=== PATIENT | male | born 1985 | race Caucasian/White ===

== ENCOUNTER 2019-10-23 04:44 | Emergency (ER) | payer SELFPAY ==
[2019-10-23 04:45] VITALS: BP 138/92; PULSE 78; RESP 18; TEMP 36.5; O2SAT 97
--- NOTE | 2019-10-23 04:52 | ED.ABDPAIN ---
HPI - Abdominal Pain General Chief Complaint: Abdominal Pain Stated Complaint: abdoman pain Time Seen by Provider: 10/23/19 04:52 Source: patient Mode of arrival: ambulatory Limitations: no limitations History of Present Illness HPI narrative: 33-year-old man comes in today complaining of upper abdominal pain which started in the last day or 2. Patient states that he has had these symptoms intermittently for months and it usually resolved by drinking some milk. He states that today the pain is worse, and worse when he palpates his abdomen and when he takes a deep breath. He has had no fever, vomiting, diarrhea, loss of appetite, cough or cold symptoms, chest pain, hematuria, dysuria, or rash. He has taken nothing for his symptoms. MD elicited complaint: abdominal pain Onset (ago): day(s) Pain Consistency: constant Location: epigastric, periumbilical and R flank Severity: severe Quality: sharp Radiation: none Migration to: no migration Exacerbating factors: movement Relieving factors: nothing Related Data Allergies Allergy/AdvReac Type Severity Reaction Status Date / Time No Known Allergies Allergy Unverified 06/05/18 00:38 Review of Systems Constitutional: Constitutional: Denies chills, Denies fever(s) and Denies weakness Eyes: Eyes: Denies change in vision and Denies photophobia ENT: Denies dysphagia, Denies nasal congestion and Denies sore throat Cardiovascular: Cardiovascular: Denies chest pain and Denies radiating jaw, neck or arm pain Respiratory: Respiratory: Denies cough and Denies dyspnea Gastrointestinal: Gastrointestinal: Reports as per HPI Genitourinary: Genitourinary: Denies hematuria and Denies dysuria Musculoskeletal: Musculoskeletal: Denies back pain, Denies arthralgias and Denies joint swelling Integumentary/Breasts: Skin/Breast: Denies pruritus, Denies erythema and Denies rash Neurologic: Denies vertigo, Denies dizziness and Denies syncope Psychiatric: Psychiatric: Denies anxiety and Denies depression Endocrine: Endocrine: Denies polydipsia and Denies polyuria Hematologic/Lymphatic: Hematologic/Lymphatic: Denies easy bleeding and Denies easy bruising Allergic/Immunologic: Allergic/Immunologic: Denies lip swelling and Denies wheezing PMFSH Social History Social History Smoking status: Smoker, status unknown Alcohol intake: current Substance use: current Substance use type: marijuana Living arrangements: with family Exam Const: General: healthy appearing and alert Nutritional Appearance: well nourished Orientation/consciousness: patient oriented x3 Other: Mild to moderate acute distress. HENMT: Ears: external ears normal, TM's normal bilaterally and EAC's normal Mouth: Yes Normal oral and palatal mucosa present and Yes moist mucous membranes Throat: posterior oropharynx normal Eyes: Conjunctivae: conjunctivae normal Pupils: Equal, round and reactive pupils present EOM: EOMs intact bilaterally Resp: Effort & Inspection: normal respiratory effort and not labored Auscultation: clear to auscultation bilaterally, no rales, no rhonchi and no wheezes Cardio: Rate: regular rate Rhythm: regular rhythm Heart sounds: no murmurs GI: Inspection: distended GI Palp: Yes Soft to palpation, Yes Tenderness to palpation present (GI) (mildly at right epigastrum), No Guarding due to palpation present (GI), No Rigid due to palpation and No Palpable mass present Auscultation: normal bowel sounds Skin: General skin exam: normal color, no jaundice and no pallor Rashes: no rashes Neuro: General: patient oriented x3, moves all extremities, no focal motor deficits and CN's II-XI intact bilaterally Speech: normal speech Extrem: General: normal to inspection and no clubbing, cyanosis or edema Psych: Appearance: grossly normal and well kempt Mental Status: mental status grossly normal Affect: normal affect Attitude: cooperative
--- NOTE | 2019-10-23 04:56 | ECG_ITS ---
Measurements Intervals [place] Rate: 76 P: 39 LA: 134 QRS: 66 QRSD: 84 T: 46 QT: 364 QTc: 411 Interpretive Statements SINUS RHYTHM RSR' IN V1 OR V2, PROBABLY NORMAL VARIANT BASELINE ARTIFACT- I, III, AVR, AVL, AVF BORDERLINE ECG Electronically Signed On 10-23-2019 7:31:00 CDT by Regis Feng D.O.
[2019-10-23] MEDS: PANTOPRAZOLE SODIUM IV 40 MG VIAL IV PUSH (05:03)
[2019-10-23 05:11] LABS: Basophils Absolute Auto 0.02 K/mm3 (0.00-0.10); Basophils Percent Auto 0.3 % (0.0-1.0); Eosinophils Absolute Auto 0.15 K/mm3 (0.02-0.50); Hematocrit 40.9 % (40.0-54.0); Hemoglobin 13.6 g/dL (14.0-18.0); Immature Granulocyte Absolute 0.02 K/mm3 (0.00-0.00); Immature Granulocyte Percent A 0.3 % (0.0-0.0); Mean Corpuscular HGB Conc 33.3 g/dL (32.0-36.0); Mean Corpuscular Hemoglobin 30.3 pg (27.0-31.0); Mean Corpuscular Volume 91.1 fL (78.0-102.0); Mean Platelet Volume 9.2 fl (8.7-11.0); Monocytes Absolute Auto 0.72 K/mm3 (0.10-0.90); Monocytes Percent Auto 9.6 % (2.0-11.0); Neutrophils Absolute Auto 4.5 K/mm3 (1.7-7.2); Neutrophils Percent Auto 59.8 % (50.0-70.0); Platelet Count Result 333 K/mm3 (150-420); Red Blood Count 4.49 M/mm3 (4.70-6.10); Red Cell Distribution Width 12.3 % (11.6-14.4); White Blood Count 7.5 K/mm3 (4.8-10.8)
[2019-10-23 05:28] LABS: Alanine Aminotransferase 43 U/L (16-63); Albumin Level 3.4 g/dL (3.4-5.0); Alkaline Phosphatase 81 U/L (46-116); Aspartate Amino Transferase 25 U/L (15-37); Blood Urea Nitrogen 12 mg/dL (7-18); Calcium 8.9 mg/dL (8.5-10.1); Carbon Dioxide 32 mmol/L (21-32); Chloride 103 mmol/L (98-108); Estimated CRCL calculation 106 ml/min; Estimated Glomerular Filt Rate > 60; Glucose 90 mg/dL (70-99); Lactic Acid Reflex 1.1 mmol/L (0.4-2.0); Lipase 104 U/L (73-393); Osmolality Calculated 293 mOsm/kg (285-295); Sodium 142 mmol/L (136-145); Total Protein 7.4 g/dL (6.4-8.2)
[2019-10-23 05:32] LABS: Bilirubin,Total < 0.1 mg/dL (0.00-1.00); Troponin I < 0.02 ng/mL (0.00-0.056)
[2019-10-23 05:39] LABS: INR 0.9; Partial Thromboplastin Time 27.7 SEC (22.3-31.6); Prothrombin Time 9.6 Seconds (9.64-11.0)
[2019-10-23 06:00] LABS: Bilirubin Urine Negative (Negative); Blood Urine Negative (Negative); Glucose Urine UA Negative (Negative); Ketones Urine Negative (Negative); Leukocyte Esterase Ur Negative LEU/UL (Negative); Nitrate Urine Negative (Negative); Protein Urine Negative (Negative); Specific Grav Ur >= 1.030 (1.010-1.020); Urobilinogen Urine 0.2 mg/dL (0.2-1.0)
[2019-10-23 06:05] LABS: Add Urine Microscopic? NO; Appearance Urine Clear (Clear); Color Urine Yellow (Yellow)
[2019-10-23 06:10] VITALS: TEMP 37.1
== END 2019-10-23 06:12 | disposition home or self-care (01) ==
PROVIDERS: Emergency Provider Emergency Medicine; PCP Internal Medicine
DX: R10.9 Unspecified abdominal pain (principal)
CPT/HCPCS: 36415; 80053; 81003; 83605; 83690; 84484; 85025; 85610; 85730; 93005; 96374; 99284; A9270; C9113

== ENCOUNTER 2020-01-19 14:29 | Emergency (ER) | payer SELFPAY ==
--- NOTE | ~2020-01-19 | XR_ITS ---
EXAMINATION: XR knee RT min 4V DATE: 01/19/2020 15:25 INDICATION: Right knee swelling. TECHNIQUE: 4 views of right knee were obtained. COMPARISON: None. FINDINGS: Bone alignment is normal. No fracture. Joint spaces are normal. No elbow joint effusion. Th ere is superficial infrapatellar bursitis. IMPRESSION: 1. Superficial infrapatellar bursitis. Reviewed, dictated and finalized at location B.
[2020-01-19 14:52] VITALS: BP 140/81; PULSE 94; RESP 16; TEMP 35.9; O2SAT 100
--- NOTE | 2020-01-19 15:05 | ED.EXTPRO ---
HPI - Extremity Problem General Chief complaint: Extremity Problem,Nontraumatic Stated complaint: Knee Pain Time Seen by Provider: 01/19/20 15:05 Source: patient Mode of arrival: ambulatory Limitations: no limitations History of Present Illness HPI Narrative: Willie Valladares is a 34 yo male with no PMH who states he has had MRSA in the past and comes to express care with a right knee swelling extends into his lower extremity; tender at the inferior patella with no signs of open wound; started 2 days ago and is gotten progressively worse but only discomfort is at the inferior pole of of the patella Related Data Allergies Allergy/AdvReac Type Severity Reaction Status Date / Time No Known Allergies Allergy Unverified 06/05/18 00:38 Review of Systems Review of Systems: Narrative: CONSTITUTIONAL: Denies fever, chills, sweats. EYES: Denies visual changes, redness, discharge. ENT: Denies rhinorrhea, congestion, sore throat, otalgia. CARDIOVASCULAR: Denies chest pain, palpitations, edema. RESPIRATORY: Denies dyspnea, wheezing, cough GASTROINTESTINAL: Denies abdominal pain, nausea, vomiting, diarrhea. GENITOURINARY: Denies dysuria, hematuria, abnormal discharge SKIN: Denies rash or itching. NEUROLOGIC: Denies numbness, or focal weakness. PSYCHIATRIC: Denies anxiety or depression. Right lower leg swelling with tenderness of lower right patella PMFSH Family History Family History Other Diabetes mellitus Social History Social History (Updated 01/19/20 @ 15:19 by Emily Santos CNP) Smoking packs per day: 1 Smoking cigarettes per day: 20.0 Smoking status: Current every day smoker Tobacco type: cigarettes Alcohol intake: current Substance use: current Substance use type: marijuana Comments At time of signature, I agree with nursing past medical, surgical, social and family history. There is no relevant family history pertinent to the presenting complaint. Exam Narrative: Exam Narrative: GENERAL: This is a well-nourished, well-developed patient, in mild distress. HEAD: normocephalic, atraumatic. EYES: PERRL. Sclera clear/white. Vision is grossly intact. EARS: External ears normal, . Hearing grossly intact. NOSE: External nose normal without nasal discharge, nares without redness, no rhinorrhea. THROAT: Mucous membranes moist, NECK: Neck supple, CARDIOVASCULAR: Regular rate and rhythm without murmurs, gallops, or rubs. RESPIRATORY: Clear to auscultation. Breath sounds equal bilaterally. No wheezes, rales, or rhonchi. GASTROINTESTINAL: Abdomen soft, non SKIN: warm, intact with no suspicious lesions or rash, good texture and turgor. NEURO: awake, alert, and oriented to person, place and time. There were no obvious focal neurologic abnormalities. Steady gait EXTREMITIES: Normal range of motion. Right knee is swollen on the lateral inferior patella swelling of leg and foot which is soft nonindurated pulses are 2+, no calf tenderness BACK: Nontender without deformity Course Course Emergency Course: X-ray of right knee-results: Bones aligned no fracture joint spaces normal no joint effusion there is a superficial infrapatellar bursitis Started on Bactrim and high-dose ibuprofen Patient is to follow-up with PCP R with ER if swelling does not decrease for evaluation for venous Doppler Vital Signs Vital signs: Vital Signs Temperature 96.7 F L 01/19/20 14:52 Pulse Rate 94 01/19/20 14:52 Respiratory Rate 16 01/19/20 14:52 Blood Pressure 140/81 01/19/20 14:52 Pulse Oximetry 100 01/19/20 14:52 Temperature 96.7 F L 01/19/20 14:52 Pulse Rate 94 01/19/20 14:52 Respiratory Rate 16 01/19/20 14:52 Blood Pressure 140/81 01/19/20 14:52 Pulse Oximetry 100 01/19/20 14:52 MDM - Extremity (Nontraumatic) Differential Diagnosis Differential diagnosis: Likely gout, cellulitis and other Discharge Plan Discharge Clinical Imp
== END 2020-01-19 15:46 | disposition home or self-care (01) ==
PROVIDERS: Emergency Provider Nurse Practitioner
DX: L03.115 Cellulitis of right lower limb (principal); F17.210 Nicotine dependence, cigarettes, uncomplicated
CPT/HCPCS: 73564; 99213; G0463

== ENCOUNTER 2021-03-16 18:41 | Emergency (ER) | payer OTHER, SELFPAY ==
[2021-03-16 19:07] VITALS: BP 137/89; PULSE 90; RESP 16; TEMP 36.9; O2SAT 98
--- NOTE | 2021-03-16 19:09 | PC.NURSE ---
Wound cleaned with hib cleanse and normal saline. Pt tolerated well.
--- NOTE | 2021-03-16 19:13 | ED.WOUNDLAC ---
HPI - Wound/Laceration General Chief Complaint: Wound/Laceration Stated Complaint: left leg injury Time Seen by Provider: 03/16/21 19:00 History of Present Illness HPI narrative: 35-year-old male patient is in the ER with complaints of a cut to the left smith area. Patient states that he was cleaning the brush outdoors and his the axilla from his hand and struck the left lower leg. He states that the he did not experience pain immediately but after couple of hours noted that there was a cut and pain in the lower leg. He has been able to weight bear. He denies any other injuries. Patient is unsure about his last tetanus status. Patient is the in good health and takes no routine medications and reports no allergies. Patient denies any COVID exposure and or any COVID vaccination. Related Data Home Medications Medication Instructions Recorded Confirmed No Home Medications 03/16/21 03/16/21 Allergies Allergy/AdvReac Type Severity Reaction Status Date / Time No Known Allergies Allergy Verified 03/16/21 19:06 Review of Systems Review of Systems: All systems reviewed & are unremarkable except as noted in HPI and below PMFSH Family History Family History Other Diabetes mellitus Social History Social History Smoking packs per day: 1 Smoking cigarettes per day: 20.0 Smoking status: Current every day smoker Tobacco type: cigarettes Alcohol intake: current Substance use: current Substance use type: marijuana Exam Narrative: Patient is alert and appears in no acute distress. Vital signs are stable. HEENT appears normal. No obvious respiratory distress is noted. Left lower extremity is examined, There is a 2 cm superficial laceration to the anterior lower smith. Bleeding is controlled. No exposure of tendon or bone is noted at this time. There is no tenderness, swelling or bruising noted through the entire length of the anterior tibial surface. Distal neurovascular status to the foot and ankle is intact. No other injuries are noted. patient is able to ambulate without difficulty. Skin is warm and dry and color is normal. Neuropsych examination of the patient is normal. Course Course Emergency Course: Laceration has been closed with 2 Vital Signs Vital signs: Vital Signs Temperature 36.9 C 03/16/21 19:07 Pulse Rate 90 03/16/21 19:07 Respiratory Rate 16 03/16/21 19:07 Blood Pressure 137/89 03/16/21 19:07 Pulse Oximetry 98 03/16/21 19:07 Temperature 36.9 C 03/16/21 19:07 Pulse Rate 90 03/16/21 19:07 Respiratory Rate 16 03/16/21 19:07 Blood Pressure 137/89 03/16/21 19:07 Pulse Oximetry 98 03/16/21 19:07 Procedures Laceration Laceration 1: Date: 03/16/21 Time: 19:10 Site: lower extremity Side (If applicable): left Size (cm): 2 Description: linear Depth: simple, single layer Local Anesthetic: none ====== Skin Level ====== Skin layer closed with: dermabond ====== Subcutaneous Layer ====== ====== Muscle Layer ====== ====== Tendon Layer ====== Discharge Plan Discharge Clinical Impression: Laceration of left lower leg Qualifiers: Encounter type: initial encounter Qualified Code(s): S81.812A - Laceration without foreign body, left lower leg, initial encounter Patient Disposition: Home, Self-Care Condition: Stable Instructions: Laceration (ED), Skin Adhesive Care (ED), Antibiotic Form Additional Instructions: Keep the area dry and clean . Avoid any band aids , oitments and getting the area wet for 3-5 days Prescriptions: No Action No Home Medications RF: 0 Follow-up/Referrals: Luisa Jaime MD [Primary Care Provider] -
[2021-03-16] MEDS: TETANUS,DIPHTHERIA,AC PERTUSSIS ADULT 0.5 ML (ADACEL) IM (19:38)
== END 2021-03-16 19:43 | disposition home or self-care (01) ==
PROVIDERS: Emergency Provider Emergency Medicine; PCP Internal Medicine
DX: S81.812A Laceration without foreign body, left lower leg, initial encounter (principal); W45.8XXA Other foreign body or object entering through skin, initial encounter
CPT/HCPCS: 12001; 90471; 90715; 99282

== ENCOUNTER 2022-01-12 10:15 | Emergency (ER) | payer OTHER, SELFPAY ==
--- NOTE | ~2022-01-12 | XR_ITS ---
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 There is a radiopaque nail in the soft tissues ventral to the first distal phalanx. No underlying fracture or traumatic malalignment. Impression: 1: Radiopaque nail in the soft tissues adjacent to the left first distal phalanx. No underlying fract ure. Reviewed, dictated and finalized at location A. Impression: 1: Radiopaque nail in the soft tissues adjacent to the left first distal phalan x. No underlying fracture.
[2022-01-12 10:28] VITALS: BP 136/77; PULSE 80; RESP 18; TEMP 36.6; O2SAT 98
[2022-01-12] MEDS: TETANUS,DIPHTHERIA,AC PERTUSSIS ADULT (0.5 ML) BOOSTRIX IM (11:32)
[2022-01-12] MEDS: LIDOCAINE HCL 1% LOCAL INJ 20 ML VIAL 5 ML INFILTRATE (11:33)
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
[2022-01-12 12:36] VITALS: BP 132/88; PULSE 76; RESP 16; O2SAT 98
== END 2022-01-12 12:38 | disposition home or self-care (01) ==
PROVIDERS: Emergency Provider Emergency Medicine; PCP Internal Medicine
DX: S61.042A Puncture wound with foreign body of left thumb without damage to nail, initial encounter (principal); Z23 Encounter for immunization; F17.210 Nicotine dependence, cigarettes, uncomplicated; W29.4XXA Contact with nail gun, initial encounter
CPT/HCPCS: 73140; 90471; 90715; 99283

== ENCOUNTER 2022-10-07 16:41 | Emergency (ER) | payer OTHER, SELFPAY ==
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
[2022-10-07 16:45] VITALS: BP 139/88; PULSE 84; RESP 18; TEMP 36.8; O2SAT 97
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
[2022-10-07] MEDS: KETOROLAC 30 MG/ML VIAL (*BKC) IM (17:05)
[2022-10-07 18:47] VITALS: BP 128/82; PULSE 80; RESP 20; TEMP 36.7; O2SAT 98
== END 2022-10-07 18:48 | disposition home or self-care (01) ==
PROVIDERS: Emergency Provider Internal Medicine Critical Care Medicine; PCP Internal Medicine
DX: S00.01XA Abrasion of scalp, initial encounter (principal); S10.91XA Abrasion of unspecified part of neck, initial encounter; S60.511A Abrasion of right hand, initial encounter; S80.211A Abrasion, right knee, initial encounter; M54.50 Low back pain, unspecified; F17.210 Nicotine dependence, cigarettes, uncomplicated; W18.39XA Other fall on same level, initial encounter
CPT/HCPCS: 70450; 72170; 72202; 73080; 73130; 96372; 99284; J1885

== ENCOUNTER 2024-05-11 10:55 | Emergency (ER) | payer SELFPAY ==
[2024-05-11 10:59] VITALS: BP 146/95; PULSE 77; RESP 18; TEMP 36.6; O2SAT 100
--- NOTE | 2024-05-11 11:11 | ED.EYEPROB ---
HPI - Eye Problem General Chief complaint: Eye Problems Stated complaint: EYE PROBLEM Source: patient Mode of arrival: ambulatory Limitations: no limitations History of Present Illness HPI Narrative: This is a 38-year-old male presents with some irritation of bilateral eyes right greater than left with no foreign body sensation started earlier today has redness with some crusty drainage, no injuries no fever chills does have some blurry vision. chief complaint: eye pain, eye redness and vision change Onset (ago): hour(s) Onset description: gradual Duration: constant Location: both eyes Eye Symptoms: redness, itching, discharge and blurry vision Related Data Allergies Allergy/AdvReac Type Severity Reaction Status Date / Time No Known Allergies Allergy Verified 10/07/22 18:19 Review of Systems Review of Systems: All systems reviewed & are unremarkable except as noted in HPI and below PMFSH Family History Family History Other Diabetes mellitus Social History Social History Smoking packs per day: 1 Smoking cigarettes per day: 20.0 Smoking status: Current every day smoker Tobacco type: cigarettes Alcohol intake: current Substance use: current Substance use type: marijuana Living arrangements: with family Exam Const: General: healthy appearing and no acute distress Nutritional Appearance: well nourished Orientation/consciousness: patient oriented x3 Eyes: Conjunctivae: conjunctival abnormality ( Bilateral conjunctival erythema with a discharge right greater than left) Pupils: Equal, round and reactive pupils present EOM: EOMs intact bilaterally Neck: Neck: normal visual inspection and no lymphadenopathy Resp: Effort & Inspection: normal respiratory effort Auscultation: clear to auscultation bilaterally Cardio: Rhythm: regular rhythm Course Course Emergency Course: anti biotic eye drops applied to bilateral eyes and recommend follow-up with primary if symptoms persist or worsen and can use Claritin [id number] daily x1 week. Vital Signs Vital signs: Vital Signs Temperature 36.6 C 05/11/24 10:59 Pulse Rate 77 05/11/24 10:59 Respiratory Rate 18 05/11/24 10:59 Blood Pressure 146/95 H 05/11/24 10:59 Pulse Oximetry 100 05/11/24 10:59 Oxygen Delivery Room Air 05/11/24 10:59 Temperature 36.6 C 05/11/24 10:59 Pulse Rate 77 05/11/24 10:59 Respiratory Rate 18 05/11/24 10:59 Blood Pressure 146/95 H 05/11/24 10:59 Pulse Oximetry 100 05/11/24 10:59 Oxygen Delivery Room Air 05/11/24 10:59 Critical Care Time Critical Care Time Critical Care Time: No Discharge Plan Discharge Clinical Impression: Bacterial conjunctivitis Patient Disposition: Home, Self-Care Condition: Stable Instructions: Antibiotic Form, Conjunctivitis (ED) Additional Instructions: advised to take medication as prescribed, and to use [id number] Claritin daily x1 week and follow with primary if symptoms persist or worsen. Prescriptions: New neomycin-polymyxin B-dexameth [Maxitrol] 3.5mg/mL-10,000 unit/mL-0.1 % drops,suspension 1 drp EACH EYE Q6H 7 Days Qty: 5 0RF No Action diclofenac sodium 75 mg tablet,delayed release (DR/EC) 75 mg PO BID PRN (Reason: pain) Qty: 20 0RF Follow-up/Referrals: UNKNOWN,DOCTOR [Primary Care Provider] - Time of Disposition: 11:15
[2024-05-11] MEDS: NEOMYCIN/POLYMYXIN/DEXAMETH OP SUSP 5 ML BTL 2 DROP EACH EYE (11:27)
== END 2024-05-11 11:33 | disposition home or self-care (01) ==
PROVIDERS: Emergency Provider Emergency Medicine; PCP Internal Medicine
DX: H10.9 Unspecified conjunctivitis (principal); F17.210 Nicotine dependence, cigarettes, uncomplicated; F12.90 Cannabis use, unspecified, uncomplicated
CPT/HCPCS: 99283; A9270

== ENCOUNTER 2024-12-17 16:28 | Emergency (ER) | payer SELFPAY ==
[2024-12-17] VITALS (10 sets, daily range): BP systolic 134–147; BP diastolic 81–87; PULSE 50–73; RESP 10–21; TEMP 36.7; O2SAT 96–100
--- NOTE | ~2024-12-17 | CT_ITS ---
CT brain wo con Ordering provider: Gama Lorenz MD History: 39 years Male with . Headache at occipital region x4 days; worsening. NKI . Comparison: None. Technique: CT of the head without contrast. Radiation reduction technique utilized.The dose-length pr oduct was 605.33 mGy-cm. FINDINGS: BRAIN PARENCHYMA AND CSF SPACES: Subarachnoid hemorrhage is seen in the frontal lobes medially. No mi dline shift or mass effect.. The brain parenchyma and CSF spaces are otherwise normal. VISUALIZED PARANASAL SINUSES: Well aerated. MASTOIDS: Well aerated. BONES: The bones appear intact. SOFT TISSUES: Visualized nasopharynx is normal. Superficial soft tissues are normal. IMPRESSION: Subarachnoid hemorrhage is seen in the frontal lobes medially. Further evaluation advised. Physician: Gama Lorenz MD Was notified with the result of the patient at 5:20 PM on December 17, 2024 Reviewed, dictated and finalized at location A. IMPRESSION: Subarachnoid hemorrhage is seen in the frontal lobes medially. Further evaluati on advised. Physician: Gama Lorenz MD Was notified with the result of the patient at 5:20 PM on December 17, 2024
--- OUTSIDE RECORDS SUMMARY | 2024-12-17 16:30 | XMS_ITS | Continuity of Care Document ---
Author Organization [facility] Address [address] [place] [address] [address] [place] [address] Phone Care Team Providers Care Erco Machine Operator Name Role Phone Airam Rainey Unavailable Unavailable Procedures Procedure Date Remove Foreign Body From Eye Advance Directives Directive Yes / No Effective Date File Name No Information Encounters Encounter Description Practice Location Reason(s) For Visit Diagnoses Date Provider Providers Copied on Encounter [facility], [address], [place], [place], [id number], [place] tel:[phone] [facility] No Information [address]legria. [address] [facility] , [address], [place], [address], [place]. tel:[phone] Referring Provider: Luisa Jaime MD, [address] [place] [address], [address]. tel:[phone] Family History Family Member Type Diagnosis Age At Onset No Information Payers Payer name Insurance type Covered democrat ID Danielle conway(aaron) [employer] [id number] Social History Type Description Quantity Date Captured Comments Sex Male Smoking Status No Information Chief Complaint And Reason For Visit No Information Reason For Referral Reason For Referral No Information History Of Present Illness Encounter Date Complaint History Of Prese nt Illness No Information Functional Status Date Functional Assessmen t No Information Instructions Date Instruction Additional Infor mation No Information Assessments Type Assessment Date No Information Patient Care Teams Name Effective Dates (start - stop) Status Members No Information
--- OUTSIDE RECORDS SUMMARY | 2024-12-17 16:30 | XMS_ITS | Clinical Summary ---
Author Organization [facility] Address [address] [place] [address] Care Team Providers Care Heel Stainer Name Role Phone None, Provider MD Primary Care Provider Unavaila ble Social History Tobacco Use Types Packs/Day Years Used Date Smoking Tobacco: Never Assessed Sex and Gender Information Value Date Recorded Sex Assigned at Not on file Legal Sex Male 9:14 AM CDT Gender Identity Not on file Sexual Orientation Not on file Plan of Treatment Health Maintenance Due Date Last Done Comments Annual Physical 12/02/1987 Hepatitis C 2002 DTaP, Tdap and Td Vaccines ( 1 - Tdap) 12/02/2003 Hepatitis B Vaccines (1 of 3 - 19+ 3-dose series) 12/02/2003 COVID-19 Vaccine (2023-2 5 season) 2024 HPV Vaccines Aged Out No longer eligi ble based on patient's age to complete this topic Meningococcal B Vaccine Aged Out No l onger eligible based on patient's age to complete this topic Meningococcal Vaccine Aged Out No charissa kevin eligible based on patient's age to complete this topic Pneumococcal Vaccine: Pediat rics (0 to 5 Years) and At-Risk Patients (6 to 49 Years) Aged Out No longer eligible b ased on patient's age to complete this topic RSV Immunizations Under 20 Months Aged Out No longer eligible based on patient's age to complete this topic Insurance [employer] Care Teams Heel Stainer Relationship Specialty Start Date End Date None, Provider, PCP - General 01/12/22
--- NOTE | 2024-12-17 16:41 | ED.HA ---
HPI - Headache General Chief Complaint: Headache Stated Complaint: severe H/A and neck pain Time Seen by Provider: 12/17/24 16:41 Source: patient and family Mode of arrival: ambulatory Limitations: no limitations History of Present Illness HPI Narrative: Patient is a 39-year-old male with an acute onset and sudden onset severe headache 4 days ago after intercourse had begun. He proceeded to have a severe headache and sat up and proceeded to have a collapse and syncopal episode with a convulsion and soiled himself. There was alcohol involved at the time. Four days past that he was in a daze and sleep most of the time. He does not remember most of this time. He presents today with severe headache on the 4th day. He has a stiff neck and pain that radiates from the occipital area to the anterior face. Throughout the week he also salt himself again which probably suggest another seizure type activity. MD elicited complaint: headache Pertinent past history: other ( None) Onset (ago): day(s) ( for) Onset description: suddenly Location: occipital Severity: severe Pain scale (0-10): 10 Quality & Timing: throbbing, sharp, steady, pain radiation ( to anterior face from occipital region) and worst headache of life Exacerbating factors: exertion Relieving factors: nothing Context: other ( patient had intercourse and proceeded to have a severe headache worst of his life and now 4 days later he is more awake and came to the ER for evaluation; it appears he has had seizure-like activity with loss of stool a couple of times over 4 days) Associated symptoms: seizure ( question of) and other ( syncope) Treatments prior to arrival: none Related Data Home Medications ?Medication ?Instructions ?Recorded ?Confirmed ?Last Taken ?Type No Home Medications 12/17/24 12/17/24 Unknown History Allergies Allergy/AdvReac Type Severity Reaction Status Date / Time No Known Allergies Allergy Verified 10/07/22 18:19 Review of Systems Review of Systems: All systems reviewed & are unremarkable except as noted in HPI and below Constitutional: Constitutional: Reports no additional constitutional complaints Eyes: Eyes: Reports no additional eye complaints ENT: Reports system reviewed and no additional complaints, except as documented Cardiovascular: Cardiovascular: Reports no additional cardiovascular complaints Respiratory: Respiratory: Reports no additional respiratory complaints Gastrointestinal: Gastrointestinal: Reports no additional gastrointestinal complaints Genitourinary: Genitourinary: Reports no additional male genitourinary complaints Musculoskeletal: Musculoskeletal: Reports no additional musculoskeletal complaints Integumentary/Breasts: Skin/Breast: Reports system reviewed and no additional complaints, except as docu Neurologic: Reports system reviewed and no additional complaints, except as documented Psychiatric: Psychiatric: Reports no additional psychiatric complaints Endocrine: Endocrine: Reports no additional endocrine complaints Hematologic/Lymphatic: Hematologic/Lymphatic: Reports no additional hematologic/lymphatic complaints Allergic/Immunologic: Allergic/Immunologic: Reports no additional allergic/immunologic complaints PMFSH Family History Family History Other Diabetes mellitus Social History Social History Smoking packs per day: 1 Smoking cigarettes per day: 20.0 Smoking status: Current every day smoker Tobacco type: cigarettes Alcohol intake: current Substance use: current Substance use type: marijuana Living arrangements: with family Exam Const: General: healthy appearing Nutritional Appearance: well nourished Orientation/consciousness: patient oriented x3 Limitations: no limitations Other: patient in acute distress of pain from his neck and his headache HENMT: Head: normal to inspection Ears: external ears normal Face/Nose/Sinus: Normal external nose present Eyes: Conjunctivae: conjunctivae normal Pupils: Equal, round and reactive pupils present EOM: EOMs intact bilaterally Neck: Neck: normal visual inspection Chest: Chest palpation & inspection: normal inspection of the chest Resp: Effort & Inspection: normal respiratory effort and not labored Auscultation: clear to auscultation bilaterally and no crackles Cardio: Rate: regular rate Rhythm: regular rhythm Heart sounds: no murmurs GI: Inspection: non-distended GI Palp: Yes Soft to palpation and No Tenderness to palpation present (GI) Auscultation: normal bowel sounds : General: Yes bladder normal to palpation Back/Spine/Pelvis: Back: no CVA tenderness Skin: General skin exam: normal color Rashes: no rashes Wounds: no wounds Neuro: General: patient oriented x3, moves all extremities, No no meningeal signs ( patient has a stiff neck with pain), no focal motor deficits and CN's II-XI intact bilaterally Cranial nerves: Yes Nystagmus not present Speech: normal speech Gait exam (Neuro): Normal gait present Extrem: General: normal to inspection Psych: Mental Status: mental status grossly normal Affect: normal affect Attitude: cooperative Course Vital Signs Vital signs: Vital Signs Temperature 36.7 C 12/17/24 16:30 Pulse Rate 56 L 12/17/24 16:30 Respiratory Rate 20 12/17/24 16:30 Blood Pressure 143/85 H 12/17/24 16:30 Pulse Oximetry 100 12/17/24 16:30 Oxygen Delivery Room Air 12/17/24 16:30 Temperature 36.7 C 12/17/24 16:30 Pulse Rate 51 L 12/17/24 17:31 Respiratory Rate 13 12/17/24 17:31 Blood Pressure 134/81 12/17/24 17:31 Pulse Oximetry 98 12/17/24 17:31 Oxygen Delivery Room Air 12/17/24 17:31 MDM - Headache MDM Narrative Medical decision making narrative: patient is a 39-year-old male with a severe onset headache 4 days ago and seizure-like activity throughout the 4 days. Patient will have immediate CT scan of the head for subarachnoid hemorrhage rule out. Unfortunately this was a true finding and patient will be transferred as soon as possible at this time. Helicopters are not flying at this time. We will do level 1 stat transfer to [facility]. Patient accepted to [facility] and ED to ED transfer. Patient not on blood thinners. Labs are stable. Blood pressure is stable. Neurosurgery wants mAP less than 110 and systolic less than 160. Keppra 1000 mg IV now. Lab Data Attestation: I reviewed the patient's lab results. 12/17/24 17:03 12/17/24 17:03 Labs: Lab Results 12/17/24 Range/Units 17:03 WBC 13.3 H (4.8-10.8) K/mm3 RBC 4.98 (4.70-6.10) M/mm3 Hgb 15.8 (14.0-18.0) g/dL Hct 46.9 (40.0-54.0) % MCV 94.2 (78.0-102.0) fL MCH 31.7 H (27.0-31.0) pg MCHC 33.7 (32-36) g/dL RDW 12.7 (11.6-14.4) % Plt Count 304 (150-420) K/mm3 MPV 9.6 (8.7-11.0) fl Immature Gran % (Auto) 0.4 H (0.0-0.0) % Neut % (Auto) 82.7 H (50.0-70.0) % Lymph % (Auto) 9.3 L (18.0-42.0) % [place] % (Auto) 7.2 (2.0-11.0) % Eos % (Auto) 0.2 L (1.0-6.0) % Baso % (Auto) 0.2 (0.0-1.0) % Lymph # (Auto) 1.24 (1.10-4.50) K/mm3 [place] # (Auto) 0.96 H (0.10-0.90) K/mm3 Eos # (Auto) 0.03 (0.02-0.50) K/mm3 Baso # (Auto) 0.02 (0.00-0.10) K/mm3 Abs Immat Gran (auto) 0.05 H (0.00-0.00) K/mm3 Absolute Neuts (auto) 11.02 H (1.70-7.20) K/mm3 Absolute Nucleated RBC 0.00 (0.00-0.00) K/mm3 Nucleated RBC % 0.0 (0-0.0) % PT 10.6 (9.50-12.1) Seconds INR 1.0 APTT 26.8 (23.9-30.70) Sec Sodium 140 (137-145) mmol/L Potassium 3.7 (3.4-5.0) mmol/L Chloride 103 (98-107) mmol/L Carbon Dioxide 29 (22-30) mmol/L Anion Gap 8 (4-12) mmol/L BUN 15 (9-20) mg/dL Creatinine 0.88 (0.7-1.3) mg/dL Estim Creat Clear Calc 98 ml/min Estimated GFR > 60 (59 - ) Glucose 107 (65-110) mg/dL Calculated Osmolality 290 (285-295) mOsm/kg Calcium 9.3 (8.4-10.2) mg/dL Total Bilirubin 1.0 (0.2-1.3) mg/dL AST 33 (17-59) U/L ALT 29 (6-50) U/L Alkaline Phosphatase 70 (38-126) U/L Total Protein 8.3 H (6.3-8.2) g/dL Albumin 4.7 (3.5-5.1) g/dL Imaging Data Attestation: I personally reviewed and interpreted this imaging study as follows: Radiologist's impression: CT scan of the head without contrast shows subarachnoid hemorrhage in the anterior region ( CTA of the head will be done at [facility]) Discharge Plan Discharge Clinical Impression: Subarachnoid hemorrhage Patient Disposition: Acute Care Hospital Condition: Guarded Prognosis Patient Language: Bulgarian Prescriptions: No Action No Home Medications Follow-up/Referrals: Luisa Jaime MD [Primary Care Provider] - Time of Disposition: 17:29
[2024-12-17] MEDS: MORPHINE SULFATE (*CRX) 2 MG/ML INJ IV PUSH (17:04)
[2024-12-17 17:06] LABS: Hematocrit 46.9 % (40.0-54.0); Hemoglobin 15.8 g/dL (14.0-18.0); Immature Granulocyte Percent A 0.4 % (0.0-0.0); Lymphocytes Absolute Auto 1.24 K/mm3 (1.10-4.50); Mean Corpuscular HGB Conc 33.7 g/dL (32-36); Mean Corpuscular Hemoglobin 31.7 pg (27.0-31.0); Mean Corpuscular Volume 94.2 fL (78.0-102.0); Nucleated Red Blood Cells Absolute Auto 0.00 K/mm3 (0.00-0.00); Nucleated Red Blood Cells Perc 0.0 % (0-0.0); Platelet Count Result 304 K/mm3 (150-420); Red Blood Count 4.98 M/mm3 (4.70-6.10); White Blood Count 13.3 K/mm3 (4.8-10.8)
--- NOTE | 2024-12-17 17:12 | PC.NURSE ---
Lights dimmed, pt resting, VSS, monitoring and awaiting CT results. at bedside.
[2024-12-17 17:15] LABS: Alanine Aminotransferase 29 U/L (6-50); Albumin Level 4.7 g/dL (3.5-5.1); Alkaline Phosphatase 70 U/L (38-126); Anion Gap 8 mmol/L (4-12); Aspartate Amino Transferase 33 U/L (17-59); Bilirubin,Total 1.0 mg/dL (0.2-1.3); Blood Urea Nitrogen 15 mg/dL (9-20); Calcium 9.3 mg/dL (8.4-10.2); Carbon Dioxide 29 mmol/L (22-30); Chloride 103 mmol/L (98-107); Estimated CRCL calculation 98 ml/min; Estimated Glomerular Filt Rate > 60; Glucose 107 mg/dL (65-110); Osmolality Calculated 290 mOsm/kg (285-295); Potassium 3.7 mmol/L (3.4-5.0); Sodium 140 mmol/L (137-145); Total Protein 8.3 g/dL (6.3-8.2)
--- OUTSIDE RECORDS SUMMARY | 2024-12-17 17:16 | XMS_ITS | Clinical Summary ---
Author Organization [facility] Address [address] [place] [address] Care Team Providers Care Slurry Mixer Name Role Phone None, Provider MD Primary [...] complete this topic Insurance [employer] Care Teams Slurry Mixer Relationship Specialty Start Date End Date None, Provider, PCP - General 01/12/22
--- OUTSIDE RECORDS SUMMARY | 2024-12-17 17:16 | XMS_ITS | Continuity of Care Document ---
Author Organization [facility] Address [address] [place] [address] [address] [place] [address] Phone Care Team Providers Care Analog Device Designer Name Role Phone Airam Rainey Unavailable Unavailable Procedures Procedure Date Remove Foreign Body From Eye Advance Directives Directive Yes / No Effective Date File Name No Information Encounters Encounter Description Practice Location Reason(s) For Visit Diagnoses Date Provider Providers Copied on Encounter [facility], [address], [place], [place], [id number], [place] tel:[phone] [facility] No Information [address]. [address] [facility] , [address], [place], [address], [place]. tel:[phone] Referring Provider: Luisa Jaime MD, [address] [place] [address], [address]. tel:[phone] Family History Family Member Type Diagnosis Age At Onset No Information Payers Payer name Insurance type Covered libertarian ID Danielle conway(aaron) [employer] [id number] Social History Type Description Quantity Date Captured [...]
[2024-12-17 17:18] LABS: INR 1.0; Partial Thromboplastin Time 26.8 Sec (23.9-30.70); Prothrombin Time 10.6 Seconds (9.50-12.1)
--- NOTE | 2024-12-17 17:20 | PC.NURSE ---
Call back from radiologist Dr Fontenot to speak w/ Dr Lorenz. Call
--- NOTE | 2024-12-17 17:21 | PC.NURSE ---
Call back from Dr Fontenot and spoke w/ Dr Lorenz. Report of CT discussed w pt and . They want transfer to [place].
[2024-12-17] MEDS: HYDROmorphone HCL INJ (*CRX) 2 MG/ML VIAL 0.5 MG IV PUSH (17:30)
[2024-12-17] MEDS: levETIRAcetam 1000MG/NACL100ML 1,000 MG/100 ML BAG 400 MG IVPB (17:49)
== END 2024-12-17 18:11 | disposition short-term general hospital (02) ==
PROVIDERS: Emergency Provider Emergency Medicine; PCP Internal Medicine
DX: I60.9 Nontraumatic subarachnoid hemorrhage, unspecified (principal); F17.210 Nicotine dependence, cigarettes, uncomplicated
CPT/HCPCS: 36415; 70450; 80053; 85025; 85610; 85730; 96374; 96375; 99285; J1171; J1953; J2270